=== PATIENT | female | born 1960 | race Caucasian/White ===

== ENCOUNTER 2017-03-18 11:47 | Inpatient (IN) | payer SELFPAY ==
[~2017-03-18] VITALS: Ht 175.3 cm; Wt 63.5 kg
[2017-03-18] MEDS ORDERED: DILTIAZEM HCL 25 MG IV IV ONE ×2 (12:00→12:15)
[2017-03-18] MEDS ORDERED: ASPIRIN 81 MG TAB.CHEW PO ONE (12:00)
[2017-03-18] MEDS ORDERED: DILTIAZEM HCL 25 MG IV ONE ×2 (12:10→12:26)
[2017-03-18] MEDS ORDERED: IV NORMAL SALINE 1000 ML BAG IV ONE (12:15)
[2017-03-18] MEDS ORDERED: CALCIUM CHLORIDE 1 GM/10 ML DISP.SYRIN IVP ONE ×2 (12:15→12:26)
[2017-03-18] MEDS ORDERED: ASPIRIN 81 MG TAB.CHEW ONE (12:18)
[2017-03-18 12:27] LABS: BASOPHILS # (AUTO) 0.2 K/uL (0.0-8.0); BASOPHILS % (AUTO) 1.4 % (0.0-2.0); EOSINOPHILS % (AUTO) 0.4 % (0.0-7.0); HEMOGLOBIN 15.3 G/DL (12.0-16.0); LYMPHOCYTES % (AUTO) 17.8 % (20.5-51.5); MEAN CORPUSCULAR HEMOGLOBIN 32.5 UUG (27.0-31.0); MEAN CORPUSCULAR HGB CONC 33 g/dL (32.0-37.0); MEAN CORPUSCULAR VOLUME 97.3 FL (81.0-99.0); MONOCYTES # (AUTO) 1.2 K/UL (0.1-1.30); MONOCYTES % (AUTO) 10.8 % (0.0-11.0); NEUTROPHILS # (AUTO) 7.7 K/UL (1.8-8.9); NEUTROPHILS % (AUTO) 69.6 % (38.5-71.5); PLATELET COUNT (AUTO) 309 K/UL (150-450); RED BLOOD CELL COUNT(AUTO) 4.72 MIL/UL (4.2-5.4); WHITE BLOOD COUNT (AUTO) 11.1 K/UL (4.0-11.2)
[2017-03-18 12:28] LABS: CREATININE 0.8 mg/dL (0.6-1.3); POTASSIUM 3.3 mmol/L (3.5-5.1)
[2017-03-18 12:41] LABS: BILIRUBIN,DIRECT 0.1 mg/dL (0.0-0.2); BILIRUBIN,TOTAL 0.3 mg/dL (0.2-1.0); TOTAL PROTEIN, SERUM 6.6 g/dL (6.4-8.2)
--- NOTE | 2017-03-18 13:50 | NUR ---
Call placed to [facility], Dr. Torre will be paged.
--- NOTE | 2017-03-18 13:52 | NUR ---
LEELEE speaking with Dr. Torre.
--- NOTE | 2017-03-18 14:10 | NUR ---
pt transfering to floor, in stable condition, in sinus rhythm, cp resided. pt was able to ambulate to bathroom with steady gait.
--- NOTE | 2017-03-18 14:15 | NUR ---
PATIENT ARRIVED TO UNIT AT 1415, RESTING, NO SIGNS OF DISTRESS NOTED, ADMITTED WITH COMPLAINTS OF CHEST PAIN, ALERT AND ORIENTED X 4
[2017-03-18 14:35] VITALS: BP 105/55
[2017-03-18] MEDS ORDERED: ONDANSETRON 4 MG/2 ML VIAL IV PRN (18:00)
[2017-03-18] MEDS ORDERED: ACETAMINOPHEN 325 MG TABLET PO PRN (18:00)
[2017-03-18] MEDS ORDERED: MAGNESIUM HYDROXIDE 30 ML LIQUID UDC PO PRN (18:00)
[2017-03-18] MEDS ORDERED: HYDROCODONE/APAP 5-325MG TABLET PO PRN (18:00)
[2017-03-18] MEDS ORDERED: ZOLPIDEM 5 MG TABLET PO PRN (18:00)
[2017-03-18] MEDS: DILTIAZEM HCL 30 MG TABLET PO SCH (19:00)
[2017-03-18 20:00] VITALS: BP 120/66
[2017-03-18] MEDS: ENOXAPARIN SODIUM 60 MG/0.6 ML DISP.SYRIN SQ SCH (20:47)
[2017-03-19 00:01] VITALS: BP 132/78
[2017-03-19] MEDS: DILTIAZEM HCL 30 MG TABLET PO SCH ×3 (00:35→12:54)
[2017-03-19 04:00] VITALS: BP 117/72
--- NOTE | 2017-03-19 05:58 | NUR ---
PT SLEPT WELL, IN NO ACUTE DISTRESS, NO C/O OF CHEST PAIN. PT IS ON TELE - SINUS KIMBER WITH PVCs. CALL LIGHT WITHIN REACH, WILL CONTINUE TO MONITOR.
[2017-03-19 06:25] LABS: BASOPHILS # (AUTO) 0.1 K/uL (0.0-8.0); BASOPHILS % (AUTO) 0.9 % (0.0-2.0); EOSINOPHILS % (AUTO) 0.8 % (0.0-7.0); HEMATOCRIT 41.3 % (37-47); HEMOGLOBIN 13.7 G/DL (12.0-16.0); LYMPHOCYTES # (AUTO) 1.2 K/UL (0.8-4.8); LYMPHOCYTES % (AUTO) 18.9 % (20.5-51.5); MEAN CORPUSCULAR HEMOGLOBIN 32.4 UUG (27.0-31.0); MEAN CORPUSCULAR HGB CONC 33 g/dL (32.0-37.0); MEAN CORPUSCULAR VOLUME 97.2 FL (81.0-99.0); MONOCYTES # (AUTO) 0.8 K/UL (0.1-1.30); MONOCYTES % (AUTO) 12.4 % (0.0-11.0); NEUTROPHILS # (AUTO) 4.1 K/UL (1.8-8.9); PLATELET COUNT (AUTO) 228 K/UL (150-450); RED BLOOD CELL COUNT(AUTO) 4.24 MIL/UL (4.2-5.4); WHITE BLOOD COUNT (AUTO) 6.2 K/UL (4.0-11.2)
[2017-03-19] MEDS ORDERED: PANTOPRAZOLE SODIUM 40 MG TABLET.DR PO SCH (07:00)
[2017-03-19 07:08] LABS: BILIRUBIN,TOTAL 0.6 mg/dL (0.2-1.0); CREATININE 0.8 mg/dL (0.6-1.3); MAGNESIUM 1.9 mg/dL (1.8-2.4); PHOSPHOROUS 3.1 mg/dL (2.5-4.9); POTASSIUM 4.3 mmol/L (3.5-5.1); TOTAL PROTEIN, SERUM 5.6 g/dL (6.4-8.2)
--- NOTE | 2017-03-19 07:10 | NUR ---
RECEIVED REPORT FROM LOOK OUT TOWER FIRE WATCHER NURSE. PATIENT IS IN BED SLEEPING, NO EVIDENCE OF DISTRESS NOTED, TELE MONITOR READING IS KIMBER AT PULSE 57. BED IN LOW POSITION, SIDE RAILS UP X2.
[2017-03-19 07:54] LABS: THYROID STIMULATING HORMONE 1.23 mIU/mL (0.358-3.740)
[2017-03-19] MEDS ORDERED: ASPIRIN 81 MG TAB.CHEW PO SCH (09:00)
[2017-03-19] MEDS: ENOXAPARIN SODIUM 60 MG/0.6 ML DISP.SYRIN SQ SCH (09:00)
[2017-03-19 11:13] VITALS: BP 128/72
[2017-03-19] MEDS ORDERED: DILT30TA33 PO ×2 (13:08→13:13)
[2017-03-19] MEDS ORDERED: DILTIAZEM HCL 30 MG TABLET PO PRN (13:15)
[2017-03-19 15:08] VITALS: BP 116/78
--- NOTE | 2017-03-19 16:00 | NUR ---
PATIENT SPOKE TO MEAT GRADER JOSÉ MIGUEL, AND WAS GIVEN INFORMATION ON SHELTERS AND LOW COST/FREE CLINICS ALONG WITH OTHER COMMUNITY SERVICES. PATIENT WAS ALSO GIVEN A TOKEN FOR THE BUS. PATIENT HAS NO EVIDENCE OF DISTRESS, NO SHORTNESS OF BREATH, NO CHEST PAIN. PATIENT WAS GIVEN DISCHARGE INSTRUCTIONS AND EDUCATION.
== END 2017-03-19 16:00 | disposition home or self-care (01) | DRG 309 ==
LOC: ER 11:47 → TELE 14:01 → MED 03-19 11:11
PROVIDERS: ADMIT Internal Medicine; ATTEND Internal Medicine
DX: I48.0 Paroxysmal atrial fibrillation (principal); E44.0 Moderate protein-calorie malnutrition; E83.51 Hypocalcemia; I08.1 Rheumatic disorders of both mitral and tricuspid valves; F17.210 Nicotine dependence, cigarettes, uncomplicated; Z59.0 Homelessness; Z68.20 Body mass index [BMI] 20.0-20.9, adult; R07.9 Chest pain, unspecified; R91.8 Other nonspecific abnormal finding of lung field; E87.6 Hypokalemia; Z82.49 Family history of ischemic heart disease and other diseases of the circulatory system; R73.9 Hyperglycemia, unspecified
CPT/HCPCS: 36415; 70030-TC; 71010; 83735; 84100; 84443; 85025; 85730; 93005; 93307; A4663; J1650; J3490; J7030

== ENCOUNTER 2022-12-24 12:20 | Emergency (ER) | payer OTHER ==
[~2022-12-24] VITALS: Ht 175.3 cm; Wt 68.0 kg
[~2022-12-24 12:20] MED LIST: DILT30TA3 PO
--- NOTE | 2022-12-24 12:58 | NUR ---
DR Hyman at the bedside for MSE.
[2022-12-24] MEDS ORDERED: SILVER SULFADIAZINE 1% CREAM 50 GM TP ONE ×2 (13:00)
--- NOTE | 2022-12-24 13:22 | NUR ---
Rt thigh cleaned and dressing applied per MD order.
[2022-12-24 13:25] VITALS: BP 144/87
--- NOTE | 2022-12-24 13:26 | NUR ---
Patient discharged to home in stable condition. Written and verbal after care instructions given. Patient verbalizes understanding of instructions. Stressed follow up or return to ER for worsening s/s.
== END 2022-12-24 13:26 | disposition home or self-care (01) ==
LOC: ER 12:20
DX: T24.211A Burn of second degree of right thigh, initial encounter (principal); Z79.899 Other long term (current) drug therapy; X10.0XXA Contact with hot drinks, initial encounter; Y93.89 Activity, other specified; Y92.89 Other specified places as the place of occurrence of the external cause; Y99.8 Other external cause status
CPT/HCPCS: 16020; A4663